=== PATIENT | female | born 1940 | race Caucasian/White ===

== ENCOUNTER 2024-07-30 18:49 | Emergency (ER) | payer MEDICARE, OTHER ==
[2024-07-30 18:59] VITALS: PULSE 58
--- NOTE | 2024-07-30 19:57 | ED ---
General Adult HPI - General Chief complaint: Recheck/Abnormal Lab/Rx Stated complaint: trouble swallowing Time Seen by Provider: 07/30/24 19:02 Source: patient Mode of arrival: ambulatory Limitations: no limitations - History of Present Illness Initial comments: 84-year-old female presenting with chief complaint of difficulty swallowing. Patient was eating pork chops for dinner tonight when she felt like the food was sitting in her throat for a few minutes. Eventually the food went down. Patient states that during that time she could not drink water. This was an isolated incident. Patient feels completely fine at this time. No foreign body sensation. No chest pain or throat pain. No hemoptysis or bleeding from the throat. - Related Data Allergies Allergy/AdvReac Type Severity Reaction Status Date / Time sulfamethoxazole AdvReac Rash/Hives Verified 07/30/24 18:56 [From Bactrim] trimethoprim [From Bactrim] AdvReac Rash/Hives Verified 07/30/24 18:56 Review of Systems ROS Statement: Those systems with pertinent positive or pertinent negative responses have been documented in the HPI. ROS Other: All systems not noted in ROS Statement are negative. Past Medical History Past Medical History: CVA/TIA, Hyperlipidemia History of Any Multi-Drug Resistant Organisms: None Reported Past Surgical History: Orthopedic Surgery Additional Past Surgical History / Comment(s): left wrist, left hand, venous left leg Past Psychological History: No Psychological Hx Reported Smoking Status: Never smoker Past Alcohol Use History: Occasional Past Drug Use History: None Reported General Exam Limitations: no limitations General appearance: alert, in no apparent distress Head exam: Present: atraumatic, normocephalic, normal inspection Eye exam: Present: normal appearance, EOMI ENT exam: Present: normal oropharynx, mucous membranes moist Neck exam: Present: normal inspection. Absent: meningismus Respiratory exam: Absent: respiratory distress, stridor Neurological exam: Present: alert, oriented X3 Psychiatric exam: Present: normal affect, normal mood Skin exam: Present: warm, dry, normal color Course Vital Signs 07/30/24 07/30/24 18:51 20:42 Temperature 97.0 F L 97.4 F L Pulse Rate 58 L 58 L Respiratory 18 19 Rate Blood Pressure 157/71 157/80 O2 Sat by Pulse 99 96 Oximetry Medical Decision Making - Medical Decision Making Was pt. sent in by a medical professional or institution (MARCI Reeves, MOVIE OPERATOR, urgent c are, hospital, or longterm...) When possible be specific @ -No Did you speak to anyone other than the patient for history (EMS, parent, family, police, friend...)? What history was obtained from this source @ -No Did you review nursing and triage notes (agree or disagree)? Why? @ -I reviewed and agree with nursing and triage notes Were old charts reviewed (outside hosp., previous admission, EMS record, old EKG, old radiological studies, urgent care reports/EKG's, longterm records)? Report findings @ -No old charts were reviewed Differential Diagnosis (chest pain, altered mental status, abdominal pain women, abdominal pain men, vaginal bleeding, weakness, fever, dyspnea, syncope, headache, dizziness, GI bleed, back pain, seizure, CVA, palpatations, mental health, musculoskeletal)? @ -Differential includes stricture, esophageal spasm, gastroparesis, large food bolus, not an all-inclusive list EKG interpreted by me (3pts min.). @ -As above X-rays interpreted by me (1pt min.). @ -None done CT interpreted by me (1pt min.). @ -None done U/S interpreted by me (1pt. min.). @ -None done What testing was considered but not performed or refused? (CT, X-rays, U/S, labs)? Why? @ -None What meds were considered but not given or refused? Why? @ -None Did you discuss the management of the patient with other professionals (professionals i.e. MARCI Reeves, MOVIE OPERATOR, lab, RT, psych nurse, adoption social worker, residential director, teacher, first officer and flight instructor, shoe parts caser)? Give summary @ -No Was smoking cessation discussed for >3mins.? @ -No Was critical care preformed (if so, how long)? @ -No Were there social determinants of health that impacted care today? How? (Homelessness, low income, unemployed, alcoholism, drug addiction, transportation, low edu. Level, literacy, decrease access to med. care, [facility], rehab)? @ -No Was there de-escalation of care discussed even if they declined (Discuss DNR or withdrawal of care, Hospice)? DNR status @ -No What co-morbidities impacted this encounter? (DM, HTN, Smoking, COPD, CAD, Cancer, CVA, ARF, Chemo, Hep., AIDS, mental health diagnosis, sleep apnea, morbid obesity)? @ -None Was patient admitted / discharged? Hospital course, mention meds given and route, prescriptions, significant lab abnormalities, going to OR and other pertinent info. @ -84-year-old female presenting with chief complaint of difficulty swallowing. Tonight while she was eating dinner she had an episode where it felt like the food took a few minutes to fully exit her esophagus into her stomach. She is having no symptoms at this time. She is in no distress. Normal physical exam. Patient is able to drink water and eat kenneth crackers here without difficulty. Educated the patient and her daughter on today's results. Patient will follow- up for endoscopy. Follow-up with PCP. Report back to ER with any new or worsening symptoms. Discussed return parameters and answered all questions. Patient conveyed verbal understanding and agreed to the plan. I discussed this case in detail with my attending Dr. Flores Undiagnosed new problem with uncertain prognosis? @ -No Drug Therapy requiring intensive monitoring for toxicity (Heparin, Nitro, Insulin, Cardizem)? @ -No Were any procedures done? @ -No Diagnosis/symptom? @ -Dysphagia Acute, or Chronic, or Acute on Chronic? @ -Acute Uncomplicated (without systemic symptoms) or Complicated (systemic symptoms)? @ -Uncomplicated Side effects of treatment? @ -No Exacerbation, Progression, or Severe Exacerbation? @ -No Poses a threat to life or bodily function? How? (Chest pain, [place], SC, pneumonia, PE, COPD, DKA, ARF, appy, cholecystitis, CVA, Diverticulitis, Homicidal, Suicidal, threat to staff... and all critical care pts) @ -No immediate threat Disposition Clinical Impression: Dysphagia Disposition: HOME SELF-CARE Condition: Good Instructions (If sedation given, give patient instructions): Dysphagia (ED) Additional Instructions: Follow-up with your PCP. Follow-up for scope with gastroenterology or general surgery. Report back to ER with any new or worsening symptoms. Is patient prescribed a controlled substance at d/c from ED?: No Referrals: Nonstaff,Physician [Primary Care Provider] - 1-2 days Beckie Zee MD [STAFF PHYSICIAN] - 1-2 days Darian Mas MD [STAFF PHYSICIAN] - 1-2 days Liliana Taylor MD [STAFF PHYSICIAN] - 1-2 days Time of Disposition: 20:18
[2024-07-30 20:54] VITALS: BP 157/80; RESP 19; TEMP 97.4
== END 2024-07-30 20:54 | disposition home or self-care (01) ==
LOC: EC 18:49
DX: R13.10 Dysphagia, unspecified (principal); Z88.1 Allergy status to other antibiotic agents; Z88.2 Allergy status to sulfonamides
CPT/HCPCS: 99283